=== PATIENT | male | born 1955 | race Caucasian/White ===

== ENCOUNTER → 2017-01-22 | Outpatient (CLI) | payer MEDICARE ==
[~2017-01-22] MED LIST: CLARITIN 10MG T10 MG PO; DEXAMETHASONE4 MG PO; DICYCLOMINE HCL10 MG PO; FAMOTIDINE20 MG PO; LIORESAL TAB 1010 MG PO; ONDANSETRON ODT8 MG PO; PREDNISONE 1 MG1 MG PO; PROCHLORPERAZIN10 MG PO; VISTARIL 25 MG25 MG PO; ZYLOPRIM 100 M100 MG PO
== END ==
LOC: HEART CORB 13:30
DX: C91.10 Chronic lymphocytic leukemia of B-cell type not having achieved remission (principal); R59.1 Generalized enlarged lymph nodes; R21 Rash and other nonspecific skin eruption
CPT/HCPCS: 93306

== ENCOUNTER 2017-03-28 13:51 | Inpatient (IN) | payer MEDICARE ==
[~2017-03-28] VITALS: Ht 185.4 cm; Wt 98.0 kg
[2017-03-28 14:41] LABS: HEMOGLOBIN 12.5 gm/dl (14.0-17.5); RED BLOOD COUNT 4.04 M/UL (4.20-5.50)
[2017-03-28 14:59] LABS: BUN/CREATININE RATIO 11 (0-10)
[2017-03-28] MEDS ORDERED: VISTARIL 25 MG25 MG PO (20:31)
[2017-03-28] MEDS ORDERED: DEXAMETHASONE4 MG PO (20:32)
[2017-03-28] MEDS ORDERED: CLARITIN 10MG T10 MG PO (20:32)
[2017-03-28] MEDS ORDERED: PROCHLORPERAZIN10 MG PO (20:34)
[2017-03-28] MEDS ORDERED: LIORESAL TAB 1010 MG PO (20:34)
[2017-03-28] MEDS ORDERED: DICYCLOMINE HCL10 MG PO (20:35)
[2017-03-28] MEDS ORDERED: FAMOTIDINE20 MG PO (20:35)
[2017-03-28] MEDS ORDERED: PREDNISONE 1 MG1 MG PO (20:35)
[2017-03-28] MEDS ORDERED: ZYLOPRIM 100 M100 MG PO (20:36)
[2017-03-28] MEDS ORDERED: ONDANSETRON ODT8 MG PO (20:37)
[2017-03-29 04:19] LABS: HEMOGLOBIN 11.3 gm/dl (14.0-17.5); RED BLOOD COUNT 3.54 M/UL (4.20-5.50); WHITE BLOOD COUNT 12.5 K/UL (4.5-11.0)
[2017-03-29 04:36] LABS: BUN/CREATININE RATIO 10 (0-10)
[2017-03-29 17:41] LABS: WHITE BLOOD COUNT 15.9 K/UL (4.5-11.0)
[2017-03-30 05:25] LABS: HEMOGLOBIN 10.9 gm/dl (14.0-17.5); RED BLOOD COUNT 3.49 M/UL (4.20-5.50); WHITE BLOOD COUNT 7.2 K/UL (4.5-11.0)
[2017-03-30 05:45] LABS: BUN/CREATININE RATIO 17 (0-10)
== END 2017-03-30 15:35 | disposition left against medical advice (07) | DRG 872 ==
LOC: ER1 13:51 → ZEROF 16:56 → MED SURG 4 16:56
PROVIDERS: Emergency Medicine; Physician Assistant; ADMIT Internal Medicine
DX: A41.9 Sepsis, unspecified organism (principal); C91.10 Chronic lymphocytic leukemia of B-cell type not having achieved remission; E87.1 Hypo-osmolality and hyponatremia; D64.9 Anemia, unspecified; D69.6 Thrombocytopenia, unspecified; E86.0 Dehydration; R31.29 Other microscopic hematuria; F17.210 Nicotine dependence, cigarettes, uncomplicated; J20.9 Acute bronchitis, unspecified; R19.7 Diarrhea, unspecified; B34.9 Viral infection, unspecified; Z86.711 Personal history of pulmonary embolism
CPT/HCPCS: 36415; 51701; 71010; 71020; 80053; 80202; 81001; 82550; 82553; 83605; 83874; 84484; 85025; 85027; 86140; 87040; 87070; 87086; 87205; 93005; 96374; 96375; 99285; J0692; J0696; J2270; J2405; J2543; J3370; J7030; J7050; J7070; Q0164

== ENCOUNTER 2017-03-31 07:57 | Emergency (ER) | payer MEDICARE | END 2017-03-31 08:45 | disposition home or self-care (01) | LOC: ER1 07:57 | DX: Z45.2 Encounter for adjustment and management of vascular access device (principal); C91.10 Chronic lymphocytic leukemia of B-cell type not having achieved remission; F17.200 Nicotine dependence, unspecified, uncomplicated; Z86.711 Personal history of pulmonary embolism | CPT/HCPCS: 99283 ==

== ENCOUNTER 2021-08-22 18:35 | Emergency (ER) | payer OTHER ==
[~2021-08-22 18:35] MED LIST changes: +ALLOPURINOL100 MG PO; +ASPIRIN EC81 MG PO; +ATORVASTATIN CA20 MG PO; +ATORVASTATIN CA40 MG PO; +CALCIUM + VITA1 EACH PO; +CLARITIN10 MG PO; +CLOPIDOGREL75 MG PO; +COMPAZINE10 MG PO; +ECOTRIN81 MG PO; +HYDROXYZINE HCL25 MG PO; +KEFLEX CAP 500500 MG PO; +LOPRESSOR 25 MG25 MG PO; +MAG-OX 400 TAB400 MG PO; +MAGOX 400400 MG PO; +NICOTINE PATCH1 EAC2 TOP; +NITROGLYCERIN0.4 MG SL; +OMEPRAZOLE40 MG PO; +PREDNISONE10 MG PO; +PREDNISONE20 MG PO; +PROCTOCREAM-HC30 G1 PR; +VIBRAMYCIN100 MG PO; +ZOFRAN4 MG PO
== END 2021-08-22 22:36 | disposition home or self-care (01) ==
LOC: ER1 18:35
PROVIDERS: Surgery
PROC: 0DC28ZZ Extirpation of Matter from Middle Esophagus, Via Natural or Artificial Opening Endoscopic (ICD-10-PCS; principal; 2021-08-22 20:17)
DX: T18.128A Food in esophagus causing other injury, initial encounter (principal); K22.2 Esophageal obstruction; K21.9 Gastro-esophageal reflux disease without esophagitis; I10 Essential (primary) hypertension; I25.10 Atherosclerotic heart disease of native coronary artery without angina pectoris; J44.9 Chronic obstructive pulmonary disease, unspecified; F17.210 Nicotine dependence, cigarettes, uncomplicated; C91.10 Chronic lymphocytic leukemia of B-cell type not having achieved remission; I69.954 Hemiplegia and hemiparesis following unspecified cerebrovascular disease affecting left non-dominant side; E78.00 Pure hypercholesterolemia, unspecified; Z79.899 Other long term (current) drug therapy; Z20.822 Contact with and (suspected) exposure to COVID-19; Z95.5 Presence of coronary angioplasty implant and graft; X58.XXXA Exposure to other specified factors, initial encounter; Y93.89 Activity, other specified
CPT/HCPCS: 96374; 96375; 99284; J0330; J2270; J2704; J2765; U0002

== ENCOUNTER → 2021-10-05 | Outpatient (CLI) | payer OTHER | LOC: KOH-I 10-03 16:00 | DX: F17.210 Nicotine dependence, cigarettes, uncomplicated (principal) | CPT/HCPCS: 71271 ==

== ENCOUNTER 2021-12-10 11:39 | Emergency (ER) | payer MEDICARE, OTHER ==
[2021-12-10] MEDS ORDERED: AUGMENTIN 875-1 EACH PO (12:09)
== END 2021-12-10 12:32 | disposition home or self-care (01) ==
LOC: ER1 11:39
DX: K04.7 Periapical abscess without sinus (principal); I10 Essential (primary) hypertension; F17.210 Nicotine dependence, cigarettes, uncomplicated
CPT/HCPCS: 99282